=== PATIENT | male | born 1960 | race Two or more races ===

== ENCOUNTER 2024-07-19 06:36 | Inpatient (IN) | payer OTHER, MEDICARE ==
[~2024-07-19] VITALS: Ht 175.3 cm; Wt 77.7 kg
[2024-07-19] VITALS (11 sets, daily range): BP systolic 149–180; BP diastolic 79–116; PULSE 66–85; RESP 12–21; TEMP 97.3–98.1; O2SAT 93–98
--- NOTE | 2024-07-19 06:47 | ED.PDOC ---
HPI Comments 63 year old male brought in my EMS presents to the ED with a chief complaint of chest pain onset today (07/19/24) about 2 hours ago. Patient states he woke up with a "full sensation", went to the bathroom and began experiencing chest pain radiating to LT arm. Upon EMS arrival, patient's pain was 5/10, he was hypertensive 220 systolic. Patient took 324 mg Aspirin prior to EMS arrival, was given 0.8 mg Nitro and states pain is 0/10 upon ED arrival, BP improved to 180 systolic. PMHx HTN. Denies shortness of breath, dizziness, nausea, vomiting, diarrhea, abdominal pain, headache, fever, chills. No other symptoms or modifying factors present at this time. Time Seen by MD: 06:37 Primary Care Provider: UNKNOWN Reviewed Notes: Medications, Allergies Allergies: Coded Allergies: NO KNOWN ALLERGIES (Unverified , 07/19/24) Information Source: Patient, Emergency Med Personnel Mode of Arrival: EMS Severity: Moderate Timing: Hours Duration: Since onset Prehospital treatment: 12 Lead EKG, Other (Nitro 0.8 mg) Location: Chest (L) Radiation: Arm (L) Quality: Pressure Onset: At Rest Cardiac Risk Factors: HTN PE Risk Factors: None History of: None Modifying Factors: Nothing Past Medical History PAST MEDICAL HISTORY: HTN Surgical History: Hernia Repair Family History Family History: Reviewed,noncontributory to illness, No family hx of Cancer, No family hx of DM, No family hx of Heart sebastian, No family hx of HTN, No family hx ofKidney sebastian, No family hx of Liver sebastian, No family hx of Lung sebastian, No family hx of Stroke Social History Smoker: Non-Smoker Alcohol: Denies ETOH Use Drugs: Denies Drug Use Lives In: Home Constitutional: denies: chills, diaphoresis, fatigue, fever, malaise, sweats, weakness, others EENTM: denies: blurred vision, double vision, ear bleeding, ear discharge, ear drainage, ear pain, ear ringing, eye pain, eye redness, hearing loss, mouth pain, mouth swelling, nasal discharge, nose bleeding, nose congestion, nose pain, photophobia, tearing, throat pain, throat swelling, voice changes, others Respiratory: denies: cough, hemoptysis, orthopnea, SOB at rest, shortness of breath, SOB with excertion, stridor, wheezing, others Cardiovascular: reports: chest pain; denies: dizzy spells, diaphoresis, Dyspnea on exertion, edema, irregular heart beat, left arm pain, lightheadedness, palpitations, PND, syncope, others Gastrointestinal: denies: abdomen distended, abdominal pain, blood streaked bowels, constipated, diarrhea, dysphagia, difficulty swallowing, hematemesis, melena, nausea, poor appetite, poor fluid intake, rectal bleeding, rectal pain, vomiting, others Genitourinary: denies: burning, dysuria, flank pain, frequency, hematuria, incontinence, penile discharge, penile sore, pain, testicle pain, testicle swelling, urgency, others Neurological: denies: dizziness, fainting, headache, left sided numbness, left sided weakness, numbness, paresthesia, pre-existing deficit, right sided numbness, right sided weakness, seizure, speech problems, tingling, tremors, weakness, others Musculoskeletal: reports: others (LT arm pain); denies: back pain, gout, joint pain, joint swelling, muscle pain, muscle stiffness, neck pain Integumetry: denies: bruises, change in color, change in hair/nails, dryness, laceration, lesions, lumps, rash, wounds, others Allergic/Immunocompromised: denies: Difficulty Healing, Frequent Infections, Hives, Itching, others Hematologic/Lymphatic: denies: anemia, blood clots, easy bleeding, easy bruising, swollen glands, others Endocrine: denies: excessive hunger, excessive sweating, excessive thirst, excessive urination, flushing, intolerance to cold, intolerance to heat, unexplained weight gain, unexplained weight loss, others Psychiatric: denies: anxiety, bipolar disorder, depression, hopeless, panic disorder, schizophrenia, sleepless, suicidal, others All Other Systems: Reviewed and Negative Physical Exam General Appearance: Moderate Distress HEENT: Normal ENT Inspection, Pharynx Normal, TMs Normal Neck: Full Range of Motion, Non-Tender, Normal, Normal Inspection Respiratory: Chest Non-Tender, Lungs Clear, No Accessory Muscle Use, No Respiratory Distress, Normal Breath Sounds Cardiovascular: No Edema, No JVD, No Murmur, No Gallop, Normal Peripheral Pulses, Regular Rate/Rhythm Breast Exam: Deferred Gastrointestinal: No Organomegaly, Non Tender, No Pulsatile Mass, Normal Bowel Sounds, Soft Genitalia: Deferred Pelvic: Deferred Rectal: Deferred Extremities: No calf tenderness, Normal capillary refill, Normal inspection, Normal range of motion, Non-tender, No pedal edema Musculoskeletal : Apperance: Normal Neurologic: Alert, 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 Was a procedure done?: No CP Differential Dx Differential Diagnosis: A-fib, A-Flutter, Angina, Anxiety / Panic Attack, Atrial Dysrhythmia, Electrolyte Disorder X-Ray, Labs, Meds, VS Vital Signs Date Time Temp Pulse Resp B/P (MAP) Pulse Ox O2 Delivery O2 Flow Rate FiO2 07/19/24 08:36 178/117 07/19/24 08:35 94 14 178/117 07/19/24 08:34 178/117 07/19/24 07:38 94 07/19/24 07:15 70 18 95 Room Air* 0 21 07/19/24 07:15 97.8 70 18 166/104 (124) 95 97.8 07/19/24 07:02 97.7 66 21 160/99 (119) 96 97.7 07/19/24 06:47 98.0 84 16 184/96 (125) 96 98.0 07/19/24 06:37 74 Lab Test 07/19/24 07:40 07/19/24 06:50 Range/Units Troponin I High Sensitivity 60 *H 47 </=54 ng/L White Blood Count 13.0 H 4.4-10.8 10^3/uL Red Blood Count 4.83 4.5-5.90 10^6/uL Hemoglobin 15.2 13.5-17.5 g/dL Hematocrit 45.0 41.0-53.0 % Mean Corpuscular Volume 93.2 80.0-100.0 fL Mean Corpuscular Hemoglobin 31.4 28.0-32.0 pg Mean Corpuscular Hemoglobin Concent 33.7 32.0-36.0 g/dL Red Cell Distribution Width 14.5 H 11.8-14.3 % Platelet Count 244 140-450 10^3/uL Mean Platelet Volume 7.0 6.9-10.8 fL Neutrophils (%) (Auto) 72.5 37.0-80.0 % Lymphocytes (%) (Auto) 14.9 10.0-50.0 % Monocytes (%) (Auto) 10.8 0.0-12.0 % Eosinophils (%) (Auto) 1.3 0.0-7.0 % Basophils (%) (Auto) 0.5 0.0-2.0 % Neutrophils # (Auto) 9.4 H 1.6-8.6 10 ^3/uL Lymphocytes # (Auto) 1.9 0.4-5.4 10 ^3/uL Monocytes # (Auto) 1.4 H 0-1.3 10 ^3/uL Eosinophils # (Auto) 0.2 0-0.8 10 ^3/uL Basophils # (Auto) 0.1 0-0.2 10 ^3/uL Nucleated Red Blood Cells 0.0 % Sodium Level 144 136-145 mmol/L Potassium Level 3.0 L 3.5-5.1 mmol/L Chloride Level 109 H 98-107 mmol/L Carbon Dioxide Level 27 20-31 mmol/L Anion Gap 8 5-15 Blood Urea Nitrogen 15 9-23 mg/dL Creatinine 1.08 0.700-1.30 mg/dL Glomerular Filtration Rate Calc 76 >90 mL/min BUN/Creatinine Ratio 13.9 10.0-20.0 Serum Glucose 123 H 74-106 mg/dL Calcium Level 9.1 8.7-10.4 mg/dL Current Medications Medications (Trade) Dose Ordered Sig/Giulia Route Start Time Stop Time Status Last Admin Nitroglycerin (Ntrostat Sublingual) 0.4 mg ONCE ONCE SL 07/19/24 06:45 07/19/24 06:46 DC 07/19/24 08:36 Morphine Sulfate 2 mg ONCE ONCE IV 07/19/24 06:45 07/19/24 06:46 DC 07/19/24 08:35 Ondansetron HCl (Zofran) 4 mg ONCE ONCE IV 07/19/24 06:45 07/19/24 06:46 DC 07/19/24 08:35 Clonidine HCl (Catapres Tablet) 0.2 mg ONCE ONCE PO 07/19/24 08:30 07/19/24 08:31 DC 07/19/24 08:34 Patient alert. Complaining of chest pain. Blood pressure over 200 systolic. Was given aspirin in the field. Was given nitro. Slightly better. Was given nitro in the ER. Was given morphine. Was given Zofran. EKG does show changes along with premature ventricular contraction. Possibly will need echocardiogram. Cardiology consultation. Stress test. Unable to transfer. Explained to the patient. Continue cardiac monitoring. [place] approved inpatient admission [id number]. Time of 1ST Reevaluation: 07:07 Reevaluation 1ST: Unchanged Patient Education/Counseling: Diagnosis, Treatment, Prognosis Family Education/Counseling: No Family Present Additional Information The following tests were ordered, and results were reviewed by me: TROP -x3, C BC, BMP, EKG -x3 Additional Information was gathered from interviewing the following independent historians: EMS I discussed treatment and results with medical personnel and: Patient Comprehensive systems review obtained and negative except for what is stated in the HPI. Departure 1 Departure Time of Disposition: 06:54 Impression: Primary Impression: Hypertensive emergency Additional Impressions: Chest pain of unknown etiology NSTEMI (non-ST elevated myocardial infarction) Leukocytosis Qualified Codes: D72.829 - Elevated white blood cell count, unspecified Hypokalemia Disposition: ADMITTED INPATIENT Admit to: Med Surg Condition: Guarded Critical Care Note Critical Care Time?: Yes (90 min-critical care time only) Critical care comment: Chest pain continue to monitor Stability Stability form required: No Heart Score Heart Score: Heart Score Response (Comments) Value History Slightly Suspicious 0 EKG Repolarization Disturb 1 Age >65 2 Risk Factors >3 or Hx ASHD 2 Troponin 1-2 x's Normal limit 1 Total 6 I personally scribed for LESLY GASCA MD ([email or web address]) on 07/19/24 at 06:47. Electronically submitted by Kaleb Marques ([email or web address]). I personally scribed for LESLY GASCA MD ([email or web address]) on 07/19/24 at 07:47. Electronically submitted by Kaleb Marques ([email or web address]). LESLY GASCA MD Jul 19, 2024 06:47
[2024-07-19 07:04] LABS: Basophils # (auto) 0.1 10 ^3/uL (0-0.2); Basophils % (auto) 0.5 % (0.0-2.0); Eosinophils # (auto) 0.2 10 ^3/uL (0-0.8); Eosinophils % (auto) 1.3 % (0.0-7.0); Hemoglobin 15.2 g/dL (13.5-17.5); Lymphocytes # (auto) 1.9 10 ^3/uL (0.4-5.4); Lymphocytes % (auto) 14.9 % (10.0-50.0); Mean Corpuscular Hemoglobin 31.4 pg (28.0-32.0); Mean Corpuscular Hgb Conc. 33.7 g/dL (32.0-36.0); Mean Corpuscular Volume 93.2 fL (80.0-100.0); Monocytes # (auto) 1.4 10 ^3/uL (0-1.3); Monocytes % (auto) 10.8 % (0.0-12.0); Neutrophils # (auto) 9.4 10 ^3/uL (1.6-8.6); Neutrophils % (auto) 72.5 % (37.0-80.0); Platelet Count (auto) 244 10^3/uL (140-450); Red Blood Cells 4.83 10^6/uL (4.5-5.90); Red Cell Distribution Width 14.5 % (11.8-14.3)
--- NOTE | 2024-07-19 07:07 | ECG ---
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
[2024-07-19 07:14] LABS: Sodium 144 mmol/L (136-145)
[2024-07-19 07:15] LABS: Anion Gap 8 (5-15); Carbon Dioxide 27 mmol/L (20-31)
[2024-07-19 07:16] LABS: Calcium 9.1 mg/dL (8.7-10.4)
[2024-07-19 07:18] LABS: Chloride 109 mmol/L (98-107)
[2024-07-19 07:20] LABS: BUN/Creatinine Ratio 13.9 (10.0-20.0); Blood Urea Nitrogen 15 mg/dL (9-23)
[2024-07-19 07:22] LABS: Glucose 123 mg/dL (74-106)
--- NOTE | 2024-07-19 07:38 | ECG ---
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
[2024-07-19] MEDS: ENOXAPARIN SOD 100 MG/1 ML SYRINGE SC ONE (08:30)
[2024-07-19] MEDS: cloNIDine HCL 0.1 MG TAB PO ONE (08:34)
[2024-07-19] MEDS: MORPHINE SULFATE INJ 2 MG/ml SYRG IV ONE (08:35)
[2024-07-19] MEDS: ONDANSETRON HCL 4 MG/2 ML VIAL IV ONE (08:35)
[2024-07-19] MEDS: NITROGLYCERIN 0.4 MG SL TAB SL ONE (08:36)
[2024-07-19] MEDS ORDERED: POTASSIUM CHL 20MEQ/100ML 100 ML IV ONE (09:00)
[2024-07-19] MEDS ORDERED: POTASSIUM CHL 20MEQ/50ML 50 ML IV ONE (09:15)
[2024-07-19] MEDS: POTASSIUM EFFERVESENT TAB 25 MEQ PO ONE (10:04)
[2024-07-19] MEDS ORDERED: LISI40TA16 PO (10:25)
[2024-07-19] MEDS ORDERED: TAMS0.4C39 PO (10:26)
[2024-07-19] MEDS ORDERED: AMLO1TAB23 PO (10:26)
--- NOTE | 2024-07-19 10:44 | DVHHP2 ---
History of Present Illness Reason for Visit: Chest Pain History of Present Illness Kingsley Araujo is a 63-year-old male with past medical history of hypertension, hyperlipidemia, diabetes, and BPH, who comes in with complaints of chest pain that radiates to his left arm. Patient states about 0330 he was awoken by a feeling a fullness and bloating. By about 0430he was out of bed, and 0445 his pain had changed to chest pain that radiates to his left arm with associated nausea and diaphoresis prompting him to come to the ER. While in the ER his first troponin was negative, the second was 60, then the third increased to 1243, patient will be admitted, cardiology consulted, and NPO. Patient also noted to be SR and then go into atrial fibrillation rate controlled on assessment, he states he has no history of atrial fibrillation. Cardiovascular: HTN Renal/: Benign prostatic enlarg. Endocrine: Diabetes Past Surgical History: Hernia Repair, Other (Spleen removal), Tonsillectomy Family History: None Smoke: No ALCOHOL: none Drugs: Marijuana Lives: with Family Domestic Violence: Neg Review of Systems Constitutional: No: Fever, Chills, Sweats, Weakness, Malaise, Other Eyes: No: Pain, Vision change, Conjunctivae inflammation, Eyelid inflammation, Other, Redness ENT: No: Ear pain, Ear discharge, Nose pain, Nose discharge, Nose congestion, Mouth pain, Mouth swelling, Throat pain, Throat swelling, Other Respiratory: No: Cough, Dry, Shortness of breath, SOB with excertion, Wheezing, Hemoptysis, Pleuritic Pain, Sputum, Wheezing, Other Cardiovascular: Chest Pain (radiates to left arm); No: Palpitations, Orthopnea, Paroxysmal Noc. Dyspnea, Edema, Lt Headedness, Other Gastrointestinal: No: Nausea, Vomiting, Abdominal Pain, Diarrhea, Constipation, Melena, Hematochezia, Other Genitourinary: No Dysuria, No Frequency, No Incontinence, No Hematuria, No Retention, No Other Musculoskeletal: No: other, neck pain, shoulder pain, arm pain, back pain, hand pain, leg pain, foot pain Skin: No: Rash, Lesions, Jaundice, Bruising, Other Neurological: No: Weakness, Numbness, Incoordination, Change in speech, Confusion, Seizures, Other Allergies: Coded Allergies: NO KNOWN ALLERGIES (Unverified , 07/19/24) Exam Vital Signs Vital Signs Date Time Temp Pulse Resp B/P (MAP) Pulse Ox O2 Delivery O2 Flow Rate FiO2 07/19/24 09:30 68 14 163/97 (119) 95 07/19/24 07:15 Room Air* 0 21 07/19/24 07:15 97.8 97.8 General Appearance: Alert, Oriented X3, Cooperative, moderate distress HEENT: Atraumatic, PERRLA, Mucous membr. moist/pink Respiratory: Clear to auscultation, Normal air movement Cardiovascular: Normal S1, Normal S2, Other (New atrial fibrillation) Abdominal: Normal bowel sounds, Soft, No tenderness, No hepatospenomegaly Extremities: No clubbing, No cyanosis, No edema, Normal pulses, No tenderness/swelling Skin: No rashes, No breakdown, No significant lesion Neuro: Normal gait, Normal speech, Strength at 5/5 X4 ext, Normal tone Psych/Mental Status: Mental status NL, Mood NL Labs/Xrays Labs Test 07/19/24 09:47 07/19/24 06:50 Range/Units Troponin I High Sensitivity 1243 *H </=54 ng/L White Blood Count 13.0 H 4.4-10.8 10^3/uL Red Blood Count 4.83 4.5-5.90 10^6/uL Hemoglobin 15.2 13.5-17.5 g/dL Hematocrit 45.0 41.0-53.0 % Mean Corpuscular Volume 93.2 80.0-100.0 fL Mean Corpuscular Hemoglobin 31.4 28.0-32.0 pg Mean Corpuscular Hemoglobin Concent 33.7 32.0-36.0 g/dL Red Cell Distribution Width 14.5 H 11.8-14.3 % Platelet Count 244 140-450 10^3/uL Mean Platelet Volume 7.0 6.9-10.8 fL Neutrophils (%) (Auto) 72.5 37.0-80.0 % Lymphocytes (%) (Auto) 14.9 10.0-50.0 % Monocytes (%) (Auto) 10.8 0.0-12.0 % Eosinophils (%) (Auto) 1.3 0.0-7.0 % Basophils (%) (Auto) 0.5 0.0-2.0 % Neutrophils # (Auto) 9.4 H 1.6-8.6 10 ^3/uL Lymphocytes # (Auto) 1.9 0.4-5.4 10 ^3/uL Monocytes # (Auto) 1.4 H 0-1.3 10 ^3/uL Eosinophils # (Auto) 0.2 0-0.8 10 ^3/uL Basophils # (Auto) 0.1 0-0.2 10 ^3/uL Nucleated Red Blood Cells 0.0 % Sodium Level 144 136-145 mmol/L Potassium Level 3.0 L 3.5-5.1 mmol/L Chloride Level 109 H 98-107 mmol/L Carbon Dioxide Level 27 20-31 mmol/L Anion Gap 8 5-15 Blood Urea Nitrogen 15 9-23 mg/dL Creatinine 1.08 0.700-1.30 mg/dL Glomerular Filtration Rate Calc 76 >90 mL/min BUN/Creatinine Ratio 13.9 10.0-20.0 Serum Glucose 123 H 74-106 mg/dL Calcium Level 9.1 8.7-10.4 mg/dL Assessment/Plan Assessment/Plan Assessment: NSTEMI (non-ST elevated myocardial infarction), Hypertensive crisis, Hypokalemia, Leukocytosis, Plan: Admit to Tele, Cardiology consult, Received 90 mg Lovenox from ER, NPO, Lipid panel, A1c, TSH, Manage/Monitor electrolytes closely, Home medications reconciled, Plan discussed with: Patient, Spouse My Orders Orders - KIERSTEN VALENTIN Procedure Category Date Status Time * Cardiology Consult CONS 07/19/24 Transmitted 09:40 Admit ADMIT 07/19/24 Transmitted 10:39 Code Status CODE 07/19/24 Transmitted 10:39 Hydrocodone-Acet PHA 07/19/24 Transmitted 5/325mg Tab ([place] 10:45 Complete Blood Count LAB 07/20/24 Verified 04:00 Comprehensive LAB 07/20/24 Verified Metabolic Panel 04:00 Npo (Nothing By DIET 07/19/24 Transmitted Mouth) Diet Lunch Echo 2d Mode Cardiac US 07/19/24 Transmitted DOP 10:39 Condition: Critical AMRIT 07/19/24 Transmitted 10:39 Acetaminophen Tablet PHA 07/19/24 Transmitted (Tylenol Tablet) 10:45 Morphine Sulfate PHA 07/19/24 Transmitted Injection 10:45 Nitroglycerin PHA 07/19/24 Transmitted Sublingual (Ntrostat 10:45 Morphine Sulfate PHA 07/19/24 Transmitted Injection 10:45 Stat Ekg For Chest [facility] 07/19/24 Transmitted Pain 10:39 Notify Md Of Changes [facility] 07/19/24 Transmitted From Base 10:39 Leaflet Distributor For [facility] 07/19/24 Transmitted 24 Hours 10:39 Emergency Dysrhythmia [facility] 07/19/24 Transmitted Protocol 10:39 Rhythm Strips Once [facility] 07/19/24 Transmitted Every Shift 10:39 Oxygen By Nasal RT 07/19/24 Transmitted Cannula 10:39 Ondansetron Hcl [facility] 07/19/24 Transmitted (Zofran) 10:45 Docusate Sodium [facility] 07/19/24 Transmitted Capsule (Colace 10:45 Tamsulosin [facility] 07/20/24 Verified Hydrochloride (Flomax) 10:00 (Nf) Amlodipine [facility] 07/20/24 Verified Besylate 10:00 (Nf) Lisinopril [facility] 07/20/24 Verified 10:00 Date of Service: Jul 19, 2024 Billing Provider: KIERSTEN VALENTIN Common Visit Codes: [id number] INP/OBS CARE (HIGH) KIERSTEN VALENTIN Jul 19, 2024 10:44
[2024-07-19] MEDS ORDERED: ACETAMINOPHEN 325 MG TAB PO PRN (10:45)
[2024-07-19] MEDS ORDERED: MORPHINE SULFATE INJ 2 MG/ml SYRG IV PRN ×2 (10:45)
[2024-07-19] MEDS ORDERED: DOCUSATE SOD 100 MG CAP PO PRN (10:45)
[2024-07-19] MEDS ORDERED: NITROGLYCERIN 0.4 MG SL TAB SL PRN (10:45)
[2024-07-19] MEDS ORDERED: HYDROcodone-ACET 5/325MG TAB PO PRN (10:45)
--- NOTE | 2024-07-19 10:57 | ECG ---
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
[2024-07-19] MEDS ORDERED: LISINOPRIL 20 MG TAB PO SCH (11:04)
[2024-07-19] MEDS ORDERED: DEXTROSE (50%) 50ML SYRG IV PRN (11:15)
--- NOTE | 2024-07-19 11:51 | DVHINCON2 ---
MYESHA MARMOLEJO [facility] 07/19/24 1151: Date Seen: Jul 19, 2024 Referring Physician CHUNG Sparrow Reason for Consultation Chest pain, elevated troponin History of Present Illness This is a 63-year-old male patient who presents to the emergency room with chief complaint of chest pain. The patient reports that the chest pain began at approximately 4:30 a.m. this morning while he was sleeping. He describes the pain as unprovoked, intermittent, pressure-like in nature, left-sided with radiation to his left shoulder and down his left arm. He comes to the emergency room for further evaluation. Initial twelve electrocardiogram reveals normal sinus rhythm with PVCs and left ventricular hypertrophy. Initial troponin level of 47ng/L with a significant up trend and current peak level at 1243ng/L. At the time of assessment, notable T-wave depression seen on continuous cardiac/vascular sonographer. A repeat twelve lead electrocardiogram was ordered at that time and reveals sinus rhythm with ST segment changes to inferolateral leads. Significant past medical history includes hypertension, dyslipidemia, benign prostatic hyperplasia, and tobacco use. Past Medical History Past medical history reviewed. No other significant than mentioned above. Past Surgical History Hernia repair x3 Splenectomy Family History Family history reviewed. Social History The patient has a four pack-year history, smokes approximately one pack per day now Admits to marijuana use, denies all other illicit drugs Denies any alcohol use Allergies: Coded Allergies: NO KNOWN ALLERGIES (Unverified , 07/19/24) Home Meds Reported Medications Tamsulosin Hcl (Tamsulosin Hcl) 0.4 Mg Cap, 1 CAP PO DAILY, #30 CAP 5 Refills 07/19/24 Amlodipine Besylate (Amlodipine Besylate) 10 Mg Tab, 1 TAB PO DAILY, #30 TAB 5 Refills 07/19/24 Lisinopril (Lisinopril) 40 Mg Tab, 1 TAB PO DAILY, #30 TAB 5 Refills 07/19/24 Home Meds Home medications reviewed. Current Medications Current Medications Medications (Trade) Dose Ordered Sig/Giulia Route PRN Reason Start Time Stop Time Status Last Admin Acetaminophen/ Hydrocodone Bitart ([place] 5/325MG Tab) 1 tab Q4HP PRN PO MODERATE PAIN (4-6 PAIN SCALE) 07/19/24 10:45 Ondansetron HCl (Zofran) 4 mg Q4HP PRN IV NAUSEA / VOMITING 07/19/24 10:45 Docusate Sodium (Colace Capsule) 100 mg BIDPRN PRN PO FOR CONSTIPATION 07/19/24 10:45 Acetaminophen (Tylenol Tablet) 650 mg Q6HP PRN PO PAIN SCALE 1-3 OR TEMP>100.4 07/19/24 10:45 Morphine Sulfate 2 mg Q4HPRN PRN IV SEVERE PAIN (7-10 PAIN SCALE) 07/19/24 10:45 Nitroglycerin (Ntrostat Sublingual) 0.4 mg Q5MINP PRN SL FOR CHEST PAIN 07/19/24 10:45 Morphine Sulfate 2 mg Q30M PRN IV FOR CHEST PAIN 07/19/24 10:45 Tamsulosin HCl (Flomax) 0.4 mg QPM PO 07/19/24 18:00 Amlodipine Besylate (Norvasc Tablet) 10 mg DAILY PO 07/19/24 11:06 Lisinopril (Zestril Tablet) 40 mg DAILY PO 07/19/24 11:04 Diagnostic Test (Pha) (Accu-Chek Comfort Curve T) 1 strip Q6HR 07/19/24 12:00 Insulin Human Regular (InsuLIN R) Q6HR SC 07/19/24 12:00 Dextrose 50 ml UD PRN IV Blood Sugar LESS THAN 60 07/19/24 11:15 Review of Systems Constitutional: No symptom reported Ears, Nose, & Throat: No symptom reported Eyes: No symptom reported Neurological: No symptoms reported Pulmonary/Respiratory: No symptoms reported Cardiovascular: Chest pain Gastrointestinal: No symptom reported Genitourinary: No symptom reported Musculoskeletal: No symptom reported Skin: No symptom reported Psychiatric: No symptom reported Endocrine: No symptom reported Hematologic/Lymphatic: No symptom reported Vital Signs Vital Signs Date Time Temp Pulse Resp B/P (MAP) Pulse Ox O2 Delivery O2 Flow Rate FiO2 07/19/24 10:55 75 07/19/24 09:30 14 163/97 (119) 95 07/19/24 07:15 Room Air* 0 21 07/19/24 07:15 97.8 97.8 Physical Exam General Appearance: Cooperative. Well-developed. Well-nourished. No acute distress. Pulmonary/Respiratory: Clear, bilateral breaths sounds. Cardiovascular/Chest: Regular rate and rhythm. Peripheral Pulses: 2+ Radial (R). 2+ Radial (L). 2+ Pedal (R). 2+ Pedal (L) Abdominal Exam: Normal bowel sounds. Ankle Exam: Negative ankle edema Lower extremities: Negative lower extremity edema Neuro/Mental Status: A/OX4, coherent. Thoughts/Psych: Normal thought pattern. Appropriate mood and affect. Good judgment and insight. Appearance: No acute distress. Skin Exam: Normal inspection. Normal color. Warm and dry. Labs/Diagnostic Data Labs Test 07/19/24 09:47 07/19/24 06:50 Range/Units Troponin I High Sensitivity 1243 *H </=54 ng/L White Blood Count 13.0 H 4.4-10.8 10^3/uL Red Blood Count 4.83 4.5-5.90 10^6/uL Hemoglobin 15.2 13.5-17.5 g/dL Hematocrit 45.0 41.0-53.0 % Mean Corpuscular Volume 93.2 80.0-100.0 fL Mean Corpuscular Hemoglobin 31.4 28.0-32.0 pg Mean Corpuscular Hemoglobin Concent 33.7 32.0-36.0 g/dL Red Cell Distribution Width 14.5 H 11.8-14.3 % Platelet Count 244 140-450 10^3/uL Mean Platelet Volume 7.0 6.9-10.8 fL Neutrophils (%) (Auto) 72.5 37.0-80.0 % Lymphocytes (%) (Auto) 14.9 10.0-50.0 % Monocytes (%) (Auto) 10.8 0.0-12.0 % Eosinophils (%) (Auto) 1.3 0.0-7.0 % Basophils (%) (Auto) 0.5 0.0-2.0 % Neutrophils # (Auto) 9.4 H 1.6-8.6 10 ^3/uL Lymphocytes # (Auto) 1.9 0.4-5.4 10 ^3/uL Monocytes # (Auto) 1.4 H 0-1.3 10 ^3/uL Eosinophils # (Auto) 0.2 0-0.8 10 ^3/uL Basophils # (Auto) 0.1 0-0.2 10 ^3/uL Nucleated Red Blood Cells 0.0 % Sodium Level 144 136-145 mmol/L Potassium Level 3.0 L 3.5-5.1 mmol/L Chloride Level 109 H 98-107 mmol/L Carbon Dioxide Level 27 20-31 mmol/L Anion Gap 8 5-15 Blood Urea Nitrogen 15 9-23 mg/dL Creatinine 1.08 0.700-1.30 mg/dL Glomerular Filtration Rate Calc 76 >90 mL/min BUN/Creatinine Ratio 13.9 10.0-20.0 Serum Glucose 123 H 74-106 mg/dL Calcium Level 9.1 8.7-10.4 mg/dL Assessment NSTEMI, rule out coronary artery disease Rule out structural heart disease Hypertensive urgency Dyslipidemia Hypokalemia Benign prostatic hyperplasia Plan/Recommendation We will continue with the following plan/recommendations (Dr. Marinelli): * Transthoracic echocardiogram to evaluate cardiac function * Chest pain protocol * HEART score: 7 points (high score) * TYE score: 4 points * Aggressive blood pressure control * Lipid-lowering agent * Close Cardiac surveillance * Coronary angiogram Case discussed with . We will recommend for the patient to undergo a coronary angiogram with left heart catheterization. The procedure was discussed with the patient in full detail including risks and benefits. Risks include but are not limited to bleeding, contrast-induced nephropathy, stroke, and even . The patient understands and is agreeable to undergo the procedure. We will schedule the patient at soonest availability on 07/19/2024. Thank you for allowing us to care for this patient. Please call with any questions or concerns. Critical care time spent: 42 minutes This medical document was created using an electronic medical record system with voice recognition software and computerized dictation system. Although this document has been carefully reviewed, there might still be some phonetic and typographical errors. Occasional wrong-word or ``sound-alike substitutions may have occurred due to the inherent limitations of voice recognition software. These areas are purely typographical due to imperfections of the software programs and do not reflect any compromise in the patient's medical care. Please read the chart carefully and recognize, using context, where these substitutions have occurred. Plan discussed with: Patient NYHA Physical activity limitations: NA Date of Service: Jul 19, 2024 Billing Provider: MYESHA MARMOLEJO Cardiology Common Codes: [id number] INP/OBS CARE (High) Cardiology Consultation Codes: 30138-[id number] CONSULT <45MIN LES MARINELLI MD 07/19/24 1517: Allergies: Coded Allergies: NO KNOWN ALLERGIES (Unverified , 07/19/24) Home Meds Reported Medications Tamsulosin Hcl (Tamsulosin Hcl) 0.4 Mg Cap, 1 CAP PO DAILY, #30 CAP 5 Refills 07/19/24 Amlodipine Besylate (Amlodipine Besylate) 10 Mg Tab, 1 TAB PO DAILY, #30 TAB 5 Refills 07/19/24 Lisinopril (Lisinopril) 40 Mg Tab, 1 TAB PO DAILY, #30 TAB 5 Refills 07/19/24 Plan/Recommendation acute NSTEMI stat consult 40 mins critical care time spent i am concerned for severe lad disease, possible PFO vs ASD noted as well [facility] today MYESHA MARMOLEJO Jul 19, 2024 11:51 LES MARINELLI MD Jul 19, 2024 15:17
[2024-07-19 11:54] LABS: Triglycerides 109 mg/dL (< 150)
[2024-07-19 11:56] LABS: HDL Cholesterol 46 mg/dL (40-59)
[2024-07-19 11:57] LABS: Cholesterol 216 mg/dL (< 200); LDL Cholesterol 151 mg/dL (< 100)
[2024-07-19] MEDS: InsuLIN REG 1unit/0.01ml Soln (100units/ml) SC SCH (12:00)
[2024-07-19] MEDS: ACCU-CHEK COMFORT CURVE STRIP VI SCH (12:00)
[2024-07-19] MEDS: ANGIOMAX 250 MG VIAL IV ONE (12:09)
[2024-07-19] MEDS: fentaNYL CITRATE 100 MCG/2 ML VL ONE (12:10)
[2024-07-19] MEDS: VERAPAMIL 2.5MG/ML INJ 2ML VIAL IV ONE (12:10)
[2024-07-19] MEDS: SODIUM CHL 0.9% 50 ML ONE (12:10)
[2024-07-19] MEDS: MIDAZOLAM HCL 2MG/2ML 2ml VIAL (1mg/ml) ONE (12:10)
[2024-07-19] MEDS: LIDOCAINE 2%HCL (LOCAL ANESTH.) INJ 20ML MDV ONE (12:10)
--- NOTE | 2024-07-19 13:36 | DVHOP2 ---
Operative Report Operative Report CARDIAC RAILCAR SWITCHER PROCEDURE REPORT [place], [place] Date of Service: 07/19/24 Pump Tender: Jc Marinelli MD PROCEDURES PERFORMED: Coronary angiogram, left heart catheterization, conscious sedation administration and supervision, less than 15 minutes; fluoroscopy use and interpretation. conscius sedation 15-30 mins, 31-45 mins, ptca 1 vessel, pci 1 vessel, acute SC intervention PREOPERATIVE DIAGNOSES: NSTEMI, severe LV dysfunction with WMA n apex, RV enlargement severe, suspected asd/pfo POSTOP DIAGNOSIS: severe cad DESCRIPTION OF PROCEDURE: The patient or appropriate family signed informed consent understanding the risks, benefits and alternatives of the procedure, they wished to proceed. The patient was brought to the cardiac hospital laboratory technician in n.p.o. state. The patient was prepped in a sterile fashion. Sedation was used per cardiac cath protocol. I administered 2 mL of 2% lidocaine to the right wrist. With an antegrade front wall puncture. I cannulated the right radial artery and placed a 6-[place]izen [place] Glidesheath slender. Next, an intra-arterial spasmolytic was administered. Next, a - 6[place] catheter and JR4, XB 3.5, XB 4, JL4, and XBLAD 4 guide and were used for coronary angiogram and LVEDP measurement and pressure pullback. At the completion of procedure, all guides and wires were removed, and there were no immediate complications. FINDINGS: RCA: Moderate vessel off the right sinus of Valsalva, there is severe sluggish flow throughout rca. entire rca is mildly ectatic and has diffuse 30-40 stenosis. distal RCA gives off PDA which is occluded with omar 0 flow. this is a small vessel. the RPL is patent. vessel barely 1mm in size not amenable to intervention LEFT MAIN: Moderate size left main, it bifurcates into LAD and circumflex. mild plaque. no severe stenosis. CIRCUMFLEX: Moderate caliber vessel coming off the left main with no flow limiting stenosis. prox CX gives off OM1. no severe plaque. LAD: LAD is a moderate caliber vessel coming of the left main. prox to mid LAD has a sequential 70 and 90% stenosis with thrombus at bifrucation of D2. D1 has an ostial 80% stenosis but small vessel. INTERVENTION: We decided to proceed with coronary intervention. I started with a 6F __XB4 LAD guide (see above) __ Guide to intubate the __LM . Angiomax bolus and gtt was started. Following this, I decided to wire using an .014 BMW across the culprit lesion with ease. At this time, we performed balloon angioplasty with a _3.0 x 15 mm balloon by [employer] __12 ___ ATMS over __15__ seconds with __12__ number of inflations. Following this, I decided to place a stent using a 3.5 x 30 mm onyx____ stent inflated up to __16 ___ ATMS over 15 seconds with two separate inflations. Following this, the stent balloon removed and angio performed showing 0% residual stenosis. OMAR pre/post: 3./3 CONCLUSIONS: 1. sp pci to prox/mid LAD ruptured plaque 90% stenosis with MARKELL 2. RPDA is occluded with thrombus, very small vessel 3. suspected ASD/PFO, embolic ? disease with underlying cad PLAN: Aggressive risk factor modification and medical management for the patient. DAPT x 1 year statin consider outpt [facility]ONALD and eval with structural heart team at [place], marked RV enlargement noted r/o UDS, drugs JC MARINELLI MD Jul 19, 2024 13:36
[2024-07-19] MEDS: TICAGRELOR 90 MG TAB ONE (13:49)
[2024-07-19] MEDS: ASPirin 81 mg TAB ONE (13:49)
[2024-07-19] MEDS: HYDROmorphone HCL 2 MG/ML VL/or syr IV ONE (14:20)
--- NOTE | 2024-07-19 14:35 | DVHSR ---
APPROVED REPORT EXAM: Two-dimensional and M-mode echocardiogram with Doppler, color Doppler and Bubble Study. Blood Pressure: 163/97 mmHg INDICATION NSTEMI RISK FACTORS Height: 5'9", Weight: 160 DIMENSIONS LVDd5.2 (3.8-5.7cm)LA (2D)5.0 (1.9-4.0cm)Aortic Root3.5 (2.0-3.7cm) LVDs4.6 (2.5-4.0cm)LA (MM) (1.9-4.0cm)Aortic Cusp Exc1.9 (1.5-2.0cm) EF (%) 26.0 (55-70%)Rt. Atrium5.9 (1.9-4.0cm)Asc. Aorta3.5 cm IVSd1.2 (0.7-1.1cm)RV (D)4.7 (1.8-2.4cm) PWd1.1 (0.7-1.1cm) Mitral Valve MitralMitral Stenosis E wave0.56m/sMV Mean GR.mmHg A wave0.26m/sMV Peak GR.mmHg E/A ratio2.22D MVAcm2 DECEL [id number] 1/2 Timems Aortic Valve Aortic ValveAortic Stenosis V10.62m/Mat Mean GR.3mmHg V21.05m/Mat Peak GR.4mmHg LVOT Diameter2.5 (1.8-2.4cm)Doppler AVA2.90cm2 Pulmonic Valve V20.90m/s Tricuspid Valve TR Velocity2.84m/s [id number] Conclusion lvef 25-30% hypokinetic apex and anteroseptum mild LVH rV enlarged biatrial enlargement septal bowing c/w elevated LA filling pressur flow across IA septum, suggestive of PFO or small ASD moderate tricuspid regurg, PH not assessed
[2024-07-19] MEDS: amLODIPine BESYLATE 5 MG TAB PO SCH (14:54)
[2024-07-19] MEDS ORDERED: LOSARTAN POTASSIUM 25 MG TAB PO SCH (15:45)
[2024-07-19] MEDS: LISINOPRIL 20 MG TAB PO ONE (17:59)
[2024-07-19] MEDS: TAMSULOSIN HYDROCHLORIDE 0.4 MG CAP PO SCH (18:00)
[2024-07-19 18:51] LABS: Potassium 3.7 mmol/L (3.5-5.1)
[2024-07-19 18:57] LABS: Magnesium 2.3 mg/dL (1.6-2.6)
--- NOTE | 2024-07-19 19:31 | DVH ---
EXAM: XY CHEST PORTABLE TECHNIQUE: Single frontal chest radiograph CLINICAL HISTORY: Chest pain COMPARISON: None Findings/Impression: Frontal chest radiograph demonstrates no acute osseous or superficial soft tissue abnormalities. The trachea is midline. Cardiomegaly with globular silhouette. Correlate for a pericardial effusion. Mild coarsened interstitial markings. No pneumothorax, pleural effusions, or consolidations.
[2024-07-19] MEDS: CLOPIDOGREL BISULFATE 75 MG TAB PO ONE (21:50)
[2024-07-19] MEDS: CARVEDILOL 3.125 MG TAB PO SCH (21:50)
[2024-07-19] MEDS: ONDANSETRON HCL 4 MG/2 ML VIAL IV PRN (21:51)
[2024-07-19] MEDS: guaiFENesin-DM 100/10mg/5ml SYR PO PRN (23:04)
[2024-07-20] VITALS (9 sets, daily range): BP systolic 133–178; BP diastolic 55–89; PULSE 52–121; RESP 16–20; TEMP 97.5–98.8; O2SAT 94–99
[2024-07-20 00:07] LABS: COVID19 ANTIGEN SOFIA FIA NEGATIVE (NEGATIVE); Rapid Influenza A Negative (Negative); Rapid Influenza B Negative (Negative)
[2024-07-20 07:13] LABS: Basophils # (auto) 0 10 ^3/uL (0-0.2); Basophils % (auto) 0.3 % (0.0-2.0); Eosinophils # (auto) 0.1 10 ^3/uL (0-0.8); Eosinophils % (auto) 0.6 % (0.0-7.0); Hematocrit 41.7 % (41.0-53.0); Hemoglobin 14.1 g/dL (13.5-17.5); Lymphocytes # (auto) 1.6 10 ^3/uL (0.4-5.4); Lymphocytes % (auto) 11.7 % (10.0-50.0); Mean Corpuscular Hemoglobin 31.8 pg (28.0-32.0); Mean Corpuscular Hgb Conc. 33.8 g/dL (32.0-36.0); Mean Corpuscular Volume 94.2 fL (80.0-100.0); Monocytes # (auto) 1.3 10 ^3/uL (0-1.3); Neutrophils # (auto) 10.3 10 ^3/uL (1.6-8.6); Neutrophils % (auto) 77.4 % (37.0-80.0); Nucleated Red Blood Cells % 0.2 %; Platelet Count (auto) 237 10^3/uL (140-450); Red Blood Cells 4.42 10^6/uL (4.5-5.90); Red Cell Distribution Width 14.2 % (11.8-14.3); White Blood Cell 13.3 10^3/uL (4.4-10.8)
[2024-07-20 07:25] LABS: Alanine Aminotransferase 38 U/L (7-40); Albumin 4.1 g/dL (3.2-4.8); Alkaline Phosphatase 59 U/L (46-116); Anion Gap 11 (5-15); BUN/Creatinine Ratio 11.6 (10.0-20.0); Blood Urea Nitrogen 11 mg/dL (9-23); Calcium 8.9 mg/dL (8.7-10.4); Carbon Dioxide 26 mmol/L (20-31); Chloride 105 mmol/L (98-107); Glucose 104 mg/dL (74-106); Magnesium 2.1 mg/dL (1.6-2.6); Sodium 142 mmol/L (136-145); Total Protein 6.1 g/dL (5.7-8.2)
[2024-07-20 07:27] LABS: Aspartate Aminotransferase 57 U/L (13-40); Bilirubin, Total 1.5 mg/dL (0.2-1.0); Potassium 3.4 mmol/L (3.5-5.1)
[2024-07-20] MEDS: ASPirin 81 mg TAB PO SCH (09:15)
[2024-07-20] MEDS: CLOPIDOGREL BISULFATE 75 MG TAB PO SCH (09:15)
[2024-07-20] MEDS: LISINOPRIL 20 MG TAB PO SCH (09:17)
--- NOTE | 2024-07-20 11:13 | DVHPN2 ---
Progress Note Date Seen: Jul 20, 2024 Medical Necessity Reason Pt with a Central, PICC or Fol: No Subjective Patient reports: No new complaints Review of Systems: HEENT:Normal, CVS:Normal, RESPIRATORY:Normal, GI:Normal, :Normal, MSK:Normal, NEURO:Normal Objective vital signs Vital Sign Date Time Temp Pulse Resp B/P (MAP) Pulse Ox O2 Delivery O2 Flow Rate FiO2 07/20/24 09:17 136/75 07/20/24 09:16 63 07/20/24 09:00 97.9 16 95 97.9 07/19/24 20:00 Nasal Cannula* 2 28 Total Intake and Output 07/19/24 07/19/24 07/20/24 15:00 23:00 07:00 Intake Total 600 ml 800 ml Balance 600 ml 800 ml medications Current Medications Medications Dose Ordered Sig/Giulia Route Start Time Stop Time Status Last Admin Dose Admin Acetaminophen/ Hydrocodone Bitart 1 tab Q4HP PRN PO 07/19/24 10:45 Ondansetron HCl 4 mg Q4HP PRN IV 07/19/24 10:45 07/19/24 21:51 4 MG Docusate Sodium 100 mg BIDPRN PRN PO 07/19/24 10:45 Acetaminophen 650 mg Q6HP PRN PO 07/19/24 10:45 Morphine Sulfate 2 mg Q4HPRN PRN IV 07/19/24 10:45 Nitroglycerin 0.4 mg Q5MINP PRN SL 07/19/24 10:45 Morphine Sulfate 2 mg Q30M PRN IV 07/19/24 10:45 Tamsulosin HCl 0.4 mg QPM PO 07/19/24 18:00 07/19/24 18:00 0.4 MG Diagnostic Test (Pha) 1 strip Q6HR 07/19/24 12:00 Insulin Human Regular Q6HR SC 07/19/24 12:00 Dextrose 50 ml UD PRN IV 07/19/24 11:15 Aspirin 81 mg DAILY PO 07/20/24 10:00 07/20/24 09:15 81 MG Clopidogrel Bisulfate 75 mg DAILY PO 07/20/24 10:00 07/20/24 09:15 75 MG Carvedilol 6.25 mg Q12HR PO 07/19/24 22:00 07/20/24 09:16 6.25 MG Lisinopril 40 mg DAILY PO 07/20/24 10:00 07/20/24 09:17 40 MG Guaifenesin/ Dextromethorphan 10 ml Q4HP PRN PO 07/19/24 22:45 07/19/24 23:04 10 ML Empaglifozin 10 mg DAILY PO 07/20/24 10:00 Spironolactone 25 mg DAILY PO 07/20/24 10:00 Examination: GENERAL:Normal, HEENT:Normal, NECK:Normal, LUNGS:Normal, LUNGS:Abnormal (RALES), CVS:Normal, ABDOMEN:Normal, MSK:Normal, SKIN:Normal, NEURO:Normal, :Normal laboratory and microbiology Laboratory Tests 07/20/24 06:41 Test 07/20/24 06:41 Range/Units Serum Glucose 104 74-106 mg/dL Problem List/Assessment/Plan Problem List/Assessment/Plan #1 acute mi s/p c angio/stent: cont meds #2 acute systolic heart failure: lasix iv, cont rest meds #3 htn #4 hyperlipidemia #5 tobacco abuse: advise to quit, no nicotine patch- time spent 11 mins advance care planning-full code- time spent 19 mins Plan discussed with: Patient, Daughter My Orders My Orders Orders - TRACEY LOU MD Procedure Category Date Status Time Furosemide Injection PHA 07/20/24 Transmitted (Lasix Injection) 11:15 Furosemide Injection PHA 07/20/24 Transmitted (Lasix Injection) 18:00 Potassium Er Tablet PHA 07/20/24 Transmitted (Klor-Con Tablet) 11:15 Potassium Er Tablet PHA 07/20/24 Transmitted (Klor-Con Tablet) 22:00 Atorvastatin (Lipitor) PHA 07/20/24 Transmitted 22:00 Complete Blood Count LAB 07/21/24 Verified 06:00 Comprehensive LAB 07/21/24 Verified Metabolic Panel 06:00 Magnesium LAB 07/21/24 Verified 05:00 Date of Service: Jul 20, 2024 Billing Provider: TRACEY LOU MD Common Visit Codes: [id number] INP/OBS CARE(HIGH) Secondary Visit Codes: [id number] CHNG SMOKING >10MIN, [id number] CARE PLAN 30 MINUTES TRACEY LOU MD Jul 20, 2024 11:13
[2024-07-20] MEDS: POTASSIUM CHL 20 Meq TABLET PO ONE (12:40)
[2024-07-20] MEDS: SPIRONOLACTONE 25 MG TAB PO SCH (12:41)
[2024-07-20] MEDS: FUROSEMIDE 20 MG/2 ML VIAL IV ONE (12:41)
[2024-07-20] MEDS: EMPAGLIFLOZIN 10 MG TAB PO SCH (12:41)
--- NOTE | 2024-07-20 16:03 | DVHDS2 ---
Discharge Summary Date of Admission Jul 19, 2024 at 10:39 Date of Discharge: Jul 20, 2024 Labs/Diagnostic Data: Laboratory Results Test 07/20/24 06:41 07/19/24 23:05 07/19/24 09:47 07/19/24 06:50 White Blood Count 13.3 10^3/uL (4.4-10.8) Red Blood Count 4.42 10^6/uL (4.5-5.90) Hemoglobin 14.1 g/dL (13.5-17.5) Hematocrit 41.7 % (41.0-53.0) Mean Corpuscular Volume 94.2 fL (80.0-100.0) Mean Corpuscular Hemoglobin 31.8 pg (28.0-32.0) Mean Corpuscular Hemoglobin Concent 33.8 g/dL (32.0-36.0) Red Cell Distribution Width 14.2 % (11.8-14.3) Platelet Count 237 10^3/uL (140-450) Mean Platelet Volume 7.4 fL (6.9-10.8) Neutrophils (%) (Auto) 77.4 % (37.0-80.0) Lymphocytes (%) (Auto) 11.7 % (10.0-50.0) Monocytes (%) (Auto) 10.0 % (0.0-12.0) Eosinophils (%) (Auto) 0.6 % (0.0-7.0) Basophils (%) (Auto) 0.3 % (0.0-2.0) Neutrophils # (Auto) 10.3 10 ^3/uL (1.6-8.6) Lymphocytes # (Auto) 1.6 10 ^3/uL (0.4-5.4) Monocytes # (Auto) 1.3 10 ^3/uL (0-1.3) Eosinophils # (Auto) 0.1 10 ^3/uL (0-0.8) Basophils # (Auto) 0 10 ^3/uL (0-0.2) Nucleated Red Blood Cells 0.2 % Sodium Level 142 mmol/L (136-145) Potassium Level 3.4 mmol/L (3.5-5.1) Chloride Level 105 mmol/L (98-107) Carbon Dioxide Level 26 mmol/L (20-31) Anion Gap 11 (5-15) Blood Urea Nitrogen 11 mg/dL (9-23) Creatinine 0.95 mg/dL (0.700-1.30) Glomerular Filtration Rate Calc 89 mL/min (>90) BUN/Creatinine Ratio 11.6 (10.0-20.0) Serum Glucose 104 mg/dL (74-106) Calcium Level 8.9 mg/dL (8.7-10.4) Magnesium Level 2.1 mg/dL (1.6-2.6) Total Bilirubin 1.5 mg/dL (0.2-1.0) Aspartate Amino Transferase (AST) 57 U/L (13-40) Alanine Aminotransferase (ALT) 38 U/L (7-40) Alkaline Phosphatase 59 U/L (46-116) Total Protein 6.1 g/dL (5.7-8.2) Albumin 4.1 g/dL (3.2-4.8) Influenza Type A Antigen Negative (Negative) Influenza Type B Antigen Negative (Negative) SARS-CoV-2 Antigen (Rapid) Negative (NEGATIVE) Troponin I High Sensitivity 1243 ng/L (</=54) Triglycerides Level 109 mg/dL (< 150) Cholesterol Level 216 mg/dL (< 200) LDL Cholesterol 151 mg/dL (< 100) HDL Cholesterol 46 mg/dL (40-59) Thyroid Stimulating Hormone (TSH) 1.73 uIU/mL (0.55-4.78) Hemoglobin A1c 5.4 % A1C (<5.7) Other Laboratory Tests 07/20/24 06:41 Brief Hx & Hospital Course: SEE DICTATED NOTE Condition at Discharge: Fair Final Diagnosis/Problems List ACUTE ND Discharge Disposition: Acute Care Facility Discharge Instruct/Medications Diet: Cardiac 2g Na,low cholest Activity: No Restrictions, As Tolerated Follow Up/Referral: FU WITH EMERSON Medications: PER JUN Discharge Statement: "Patient was advised to return to the ER or call 911 if any headaches, dizziness, shortness of breath, chest pain, abdominal pain, bleeding, fevers, or worsening of medical condition. Patient was counseled about treatment plan, medications, possible side effects, patientverbalized understanding. All questions were answered to the best of my ability. This discharge took greater then 30 minutes in planning, reviewing documentation, counseling the patient, and discussing with other team members." ASSESSMENT ASSESSMENT Assessment ACUTE ND Date of Service: Jul 20, 2024 Billing Provider: TRACEY LOU MD Common Visit Codes: 76690-FXZ/OBS DISCH DAY >30min TRACEY LOU MD Jul 20, 2024 16:03
--- NOTE | 2024-07-20 16:29 | ECG ---
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
--- NOTE | 2024-07-20 16:53 | DVHDS ---
DATE OF DISCHARGE: 07/20/2024 TRANSFER SUMMARY DATE OF TRANSFER: 07/20/2024 HISTORY OF PRESENT ILLNESS: The patient is a 63-year-old gentleman who was admitted with complaints of chest pain radiating to left arm and has history of BPH, hypertension, hyperlipidemia. HOSPITAL COURSE: The patient was found to have acute myocardial infarction. The patient was seen in Cardiology consult by Dr. Kong. The patient underwent a coronary angiography and had a PCI proximal to mid LAD. The patient also had a possible suspected ASD/PFO. The patient's echocardiogram done showed ejection fraction of 25-30%. The patient is in congestive heart failure. The patient's chest x-ray showed evidence of cardiomegaly with pulmonary venous congestion. The patient had an elevated lipid panel with LDL of 151. He will now be transferred to [facility] for further management. FINAL DIAGNOSES: Therefore, * Acute myocardial infarction, status post coronary angiography with stent. * Acute systolic heart failure. * Hypertension. * Hyperlipidemia. * Tobacco abuse. * Questionable atrial septal defect/patent foramen ovale. Time spent in discharge planning and review of plan with nursing and the patient was 39 minutes. MD BEST Feldman/YARITZA TID: [id number] RECEIPT: [id number]
[2024-07-20] MEDS: FUROSEMIDE 20 MG/2 ML VIAL IV SCH (17:51)
[2024-07-20] MEDS: ATORVASTATIN 20 MG TAB PO SCH (22:00)
[2024-07-20] MEDS ORDERED: POTASSIUM CHL 20 Meq TABLET PO SCH (22:00)
== END 2024-07-20 22:30 | disposition short-term general hospital (02) | DRG 321 ==
LOC: EDBD 06:36 → ER 06:36 → OVERFLOW 10:39 → TELE-EAST 16:00
PROVIDERS: ADMIT Internal Medicine; ATTEND Internal Medicine
PROC: B211YZZ Fluoroscopy of Multiple Coronary Arteries using Other Contrast (ICD-10-PCS; principal; 2024-07-19)
PROC: 027035Z Dilation of Coronary Artery, One Artery with Two Drug-eluting Intraluminal Devices, Percutaneous Approach (ICD-10-PCS; 2024-07-19)
PROC: 4A023N7 Measurement of Cardiac Sampling and Pressure, Left Heart, Percutaneous Approach (ICD-10-PCS; 2024-07-19)
DX: I21.4 Non-ST elevation (NSTEMI) myocardial infarction (principal); I50.21 Acute systolic (congestive) heart failure; I16.1 Hypertensive emergency; Q21.12 Patent foramen ovale; Q21.10 Atrial septal defect, unspecified; E87.6 Hypokalemia; D72.829 Elevated white blood cell count, unspecified; E78.5 Hyperlipidemia, unspecified; Z20.822 Contact with and (suspected) exposure to COVID-19; E11.9 Type 2 diabetes mellitus without complications; I48.91 Unspecified atrial fibrillation; I11.0 Hypertensive heart disease with heart failure; I49.3 Ventricular premature depolarization; I25.10 Atherosclerotic heart disease of native coronary artery without angina pectoris; N40.0 Benign prostatic hyperplasia without lower urinary tract symptoms; Z90.81 Acquired absence of spleen; Z72.0 Tobacco use; Z79.899 Other long term (current) drug therapy
CPT/HCPCS: 36415; 71045; 80048; 80053; 80061; 83036; 83735; 83880; 84132; 84443; 84484; 85025; 87426; 87804; 92941; 93005; 93306; 93458; 96372; 96374; 99152; 99153; 99291; 99292; G0378; J2250; J2405; J3480